=== PATIENT | female | born 1990 | race African-American/Black ===

== ENCOUNTER 2022-09-05 03:17 | Emergency (ER) | payer SELFPAY | END 2022-09-05 04:32 | disposition home or self-care (01) | LOC: CSHERS 03:17 | DX: Z02.79 Encounter for issue of other medical certificate (principal); F17.210 Nicotine dependence, cigarettes, uncomplicated; I10 Essential (primary) hypertension; Z79.899 Other long term (current) drug therapy | CPT/HCPCS: 93005 ==

== ENCOUNTER 2025-03-25 18:04 | Emergency (ER) | payer SELFPAY ==
[2025-03-25] MEDS ORDERED: predniSONE 20 MG TAB ONE (19:10)
[2025-03-25 19:46] LABS: Glucose, Urine (Dipstick) Normal (Negative); Leukocyte Negative (Negative); Protein, Urine (Dipstick) Negative (Neg-Trace); Specific Gravity, Urine 1.020 (1.005-1.030)
[2025-03-25 19:47] LABS: Pregnancy Test - Urine (BHCG) Negative (Negative); Pregu Control Background? CLEAR/WHITE (CLR/WHITE); Pregu Control Bar Appear? YES (CONTROL BAR)
[2025-03-25 19:56] LABS: Bacteria/HPF 2+ HPF (None Seen); CAUTI Indications for Culture Pelvic or flank pain; RBC/HPF 0-3 HPF (0-3); WBC/HPF 0-3 HPF (0-3)
[2025-03-25 19:57] LABS: Mucous/LPF 2+ LPF (<2+)
[2025-03-25 19:59] LABS: Urine Culture Reflex No No
[2025-03-25] MEDS ORDERED: metroNIDAZOLE 500 MG TAB ONE (21:02)
[2025-03-26 10:23] LABS: Chlamydia by PCR, Vaginal Swab Not Detected (NotDetected); GC by PCR, Vaginal Swab Not Detected (NotDetected)
== END 2025-03-25 21:10 | disposition home or self-care (01) ==
LOC: CSHERS 18:04
DX: U07.1 COVID-19 (principal); N76.0 Acute vaginitis; B96.89 Other specified bacterial agents as the cause of diseases classified elsewhere; I10 Essential (primary) hypertension; F17.210 Nicotine dependence, cigarettes, uncomplicated
CPT/HCPCS: 71046; 81001; 81025; 87081; 87428; 87430; 87480; 87491; 87510; 87591; 87660; 94640; J7512; J7620